=== PATIENT | male | born 1995 | race Caucasian/White ===

== ENCOUNTER 2016-10-03 08:42 | Emergency (ER) | payer MEDICAID, OTHER ==
[~2016-10-03] VITALS: Ht 180.3 cm; Wt 90.7 kg
[2016-10-03 08:53] VITALS: BP 136/77
--- NOTE | 2016-10-03 10:25 | REP ---
Nasal bone series three views: Comparison is the paranasal sinus series dated 2003. There is no nasal bone fracture. The orbital rims are intact. There are no air-fluid levels in the paranasal sinuses. No radiopaque foreign body. Impression: No nasal bone fracture. Signed by Chaim Hammond MD 10/03/2016 10:16 A
== END 2016-10-03 10:52 | disposition home or self-care (01) ==
LOC: M ED 09:54
DX: S00.33XA Contusion of nose, initial encounter (principal); Y04.8XXA Assault by other bodily force, initial encounter; Y92.019 Unspecified place in single-family (private) house as the place of occurrence of the external cause; Y93.89 Activity, other specified; Y99.8 Other external cause status; R04.0 Epistaxis; Z88.8 Allergy status to other drugs, medicaments and biological substances

== ENCOUNTER 2017-08-06 17:29 | Emergency (ER) | payer OTHER, MEDICAID | END 2017-08-06 21:48 | disposition home or self-care (01) | LOC: M ED 17:29 | DX: S90.02XA Contusion of left ankle, initial encounter (principal); V43.52XA Car driver injured in collision with other type car in traffic accident, initial encounter; Y92.410 Unspecified street and highway as the place of occurrence of the external cause; Z88.8 Allergy status to other drugs, medicaments and biological substances | CPT/HCPCS: 71046 ==

== ENCOUNTER → 2022-11-09 | Outpatient (CLI) | payer BC, OTHER | LOC: M PLAIMG 13:11 | PROVIDERS: ATTEND Registered Nurse | DX: M25.552 Pain in left hip (principal) ==

== ENCOUNTER → 2023-04-25 | Outpatient (CLI) | payer BC, OTHER | LOC: M RAD 15:44 | PROVIDERS: ATTEND Registered Nurse | DX: R10.2 Pelvic and perineal pain (principal) ==

== ENCOUNTER → 2024-10-29 | Outpatient (CLI) | payer OTHER ==
[2024-10-29 07:36] LABS: BASO # 0.1 10^3/uL (0.0-0.2); BASO % 0.7 % (0.0-1.0); EOS # 0.1 10^3/uL (0.0-0.5); EOS % 0.9 % (0.0-3.0); HEMATOCRIT 47.3 % (42.0-52.0); HEMOGLOBIN 16.1 g/dl (13.5-17.5); LYMPH # 2.9 10^3/uL (1.5-5.0); LYMPH % 38.5 % (24.0-44.0); MEAN CORPUSCULAR HEMOGLOBIN 29.3 pg (27.0-33.0); MONO # 0.6 10^3/uL (0.0-0.8); MONO % 8.5 % (2.0-8.0); NEUTROPHILS # 3.8 10^3/uL (1.5-8.5); NEUTROPHILS % 50.6 % (36.0-66.0); PLATELET COUNT, AUTOMATED 316 10^3/uL (150-450); WHITE BLOOD COUNT 7.6 10^3/uL (4.0-10.0)
[2024-10-29 08:09] LABS: FREE T4 1.13 NG/DL (0.89-1.76); THYROID STIMULATING HORMONE 2.063 uIU/ML (0.55-4.78)
[2024-10-29 08:10] LABS: ALBUMIN 4.4 G/DL (3.2-5.2); ALKALINE PHOSPHATASE 97 U/L (40-129); ALT/SGPT 32 U/L (7.0-40); AST/SGOT 16 U/L (<34); BILIRUBIN,TOTAL 0.4 MG/DL (0.3-1.2); BLOOD UREA NITROGEN 13 MG/DL (9-23); CALCIUM LEVEL 9.9 MG/DL (8.5-10.1); CARBON DIOXIDE LEVEL 28 MMOL/L (20-31); CHLORIDE LEVEL 104 MMOL/L (98-107); CHOLESTEROL LEVEL 232 MG/DL (<200); CHOLESTEROL RISK RATIO 6.27 (<5); CREATININE FOR GFR 0.87 MG/DL (0.70-1.30); GLOMERULAR FILTRATION RATE > 90.0 (>60); GLUCOSE, FASTING 121 MG/DL (60-100); LDL CHOLESTEROL 139.6 MG/DL (<100); POTASSIUM SERUM 4.3 MMOL/L (3.5-5.1); SODIUM LEVEL 141 MMOL/L (136-145); TOTAL PROTEIN 7.1 G/DL (5.7-8.2); TRIGLYCERIDES LEVEL 277 MG/DL (<150)
[2024-10-29 08:11] LABS: HEMOGLOBIN A1c 5.6 % (4.0-6.0)
[2024-10-29 08:12] LABS: THYROID PEROXIDASE ANTIBODY < 28.0 U/ML (<60.0)
[2024-11-03 17:57] LABS: TESTOSTERONE FREE (DIRECT) 75.1 pg/mL (35.0-155.0)
== END ==
LOC: M LAB 06:44
PROVIDERS: ATTEND Registered Nurse
DX: Z00.00 Encounter for general adult medical examination without abnormal findings (principal)

== ENCOUNTER → 2025-05-21 | Outpatient (REF) | payer BC ==
[2025-05-21 14:29] LABS: PSA SCREENING 0.45 NG/ML (< 4.00)
[2025-05-21 14:34] LABS: ESTRADIOL 33.2 PG/ML (<39.8); LUTEINIZING HORMONE 3.9 mIU/ML (1.5-9.3); TESTOSTERONE 215.0 NG/DL (241-827)
[2025-05-21 14:39] LABS: PLATELET COUNT, AUTOMATED 319 10^3/uL (150-450)
== END ==
LOC: M SFHCADAM 08:50
PROVIDERS: ATTEND Nurse Practitioner Family
DX: R79.89 Other specified abnormal findings of blood chemistry (principal)
CPT/HCPCS: 82670; 83001; 83002; 84403; 85027; G0103